=== PATIENT | female | born 1980 | race Caucasian/White ===

== ENCOUNTER 2021-09-23 23:02 | Emergency (ER) | payer MEDICAID, OTHER ==
[~2021-09-23] VITALS: Ht 152.4 cm; Wt 65.8 kg
[2021-09-24 00:05] VITALS: BP 127/65
--- NOTE | 2021-09-24 00:47 | NUR ---
Patient discharged to [facility] custody in stable condition. Written and verbal after care instructions given. Patient verbalizes understanding of instruction.
== END 2021-09-24 00:47 ==
LOC: ER 23:08
DX: Z20.822 Contact with and (suspected) exposure to COVID-19 (principal); Z02.89 Encounter for other administrative examinations
CPT/HCPCS: 87426; 99283; C9803